=== PATIENT | male | born 1985 | race African-American/Black ===

== ENCOUNTER 2019-09-28 16:56 | Emergency (ER) | payer SELFPAY ==
[~2019-09-28] VITALS: Ht 177.8 cm; Wt 78.0 kg
[2019-09-28] MEDS ORDERED: ONDANSETRON HCL 4MG/2ML INJ IV STA (17:04)
[2019-09-28] MEDS ORDERED: NALOXONE HCL 1 MG/ML 2ML VIAL IV ONE ×2 (17:15→17:45)
[2019-09-28 18:01] LABS: *AMPHETAMINES SCREEN URINE PRESUMTIVE POSITIVE (NEGATIVE); *BARBITURATES SCREEN URINE NEGATIVE (NEGATIVE); *BENZODIAZEPINES SCREEN URINE NEGATIVE (NEGATIVE); CANNABINOID URINE SCREEN PRESUMTIVE POSITIVE (NEGATIVE); METHADONE URINE SCREEN NEGATIVE (NEGATIVE); OPIATES URINE SCREEN NEGATIVE (NEGATIVE); PHENCYCLIDINE URINE SCREEN NEGATIVE (NEGATIVE)
[2019-09-28 18:02] LABS: *COCAINE SCREEN URINE NEGATIVE (NEGATIVE)
[2019-09-28 18:42] LABS: BASOPHILS % 0.3 % (0.0-2.0); EOSINOPHILS % 2.8 % (0.0-5.0); HEMATOCRIT. 46.4 % (42.0-52.0); HEMOGLOBIN. 16.1 g/dL (14.0-18.0); MEAN CORPUSCULAR HEMOGLOBIN 34.6 pg (28.0-32.0); MEAN CORPUSCULAR VOLUME 99.8 fL (80.0-94.0); MEAN PLATELET VOLUME 6.5 fl (7.4-10.4); MONOCYTES % 8.9 % (2.0-8.0); PLATELET 456 x1000/uL (130-400); RED BLOOD CELL COUNT 4.65 mill/uL (4.7-6.1); RED CELL DISTRIBUTION WIDTH 14.8 % (11.6-14.6)
[2019-09-28 18:50] LABS: CHLORIDE 106 mEq/L (98-107)
[2019-09-28 18:53] LABS: ETHANOL BLOOD 164 mg/dL
[2019-09-28] MEDS ORDERED: ACETAMINOPHEN 325MG TABLET PO PRN ×2 (23:45)
[2019-09-28] MEDS ORDERED: GUAIFENESIN 200MG/10ML SUGAR FREE UDC PO PRN (23:45)
[2019-09-28] MEDS ORDERED: MAGNESIUM/ALUMINUM HYDROXIDE/SIMETHICONE 30ML UDC PO PRN (23:45)
[2019-09-28] MEDS ORDERED: ONDANSETRON HCL 4MG/2ML INJ IV PRN (23:45)
[2019-09-28] MEDS ORDERED: DIPHENHYDRAMINE 50MG/ML VIAL IV PRN (23:45)
[2019-09-28] MEDS ORDERED: DOCUSATE SODIUM 100MG CAPSULE PO PRN (23:45)
[2019-09-28] MEDS ORDERED: ACETAMINOPHEN 650MG SUPP PR PRN ×2 (23:45)
[2019-09-28] MEDS ORDERED: ACETAMINOPHEN 650MG/20.3ML UDC GT PRN ×2 (23:45)
[2019-09-28] MEDS ORDERED: NA PHOS,M-B/NA PHOS,DI-BA ENEMA 118ML PR PRN (23:45)
[2019-09-28] MEDS ORDERED: CLONIDINE 0.1MG TABLET PO PRN (23:45)
[2019-09-29] MEDS ORDERED: DEXT 5%/0.9% NACL 1,000 ML IV SCH (01:00)
[2019-09-29 07:31] LABS: BASOPHILS % 0.3 % (0.0-2.0); EOSINOPHILS % 2.9 % (0.0-5.0); HEMATOCRIT. 45.4 % (42.0-52.0); HEMOGLOBIN. 15.8 g/dL (14.0-18.0); MEAN CORPUSCULAR HEMOGLOBIN 34.5 pg (28.0-32.0); MEAN CORPUSCULAR VOLUME 99.1 fL (80.0-94.0); MEAN PLATELET VOLUME 6.4 fl (7.4-10.4); MONOCYTES % 11.7 % (2.0-8.0); NEUTROPHILS % 60.1 % (40.0-76.0); PLATELET 409 x1000/uL (130-400); RED BLOOD CELL COUNT 4.58 mill/uL (4.7-6.1); RED CELL DISTRIBUTION WIDTH 15.2 % (11.6-14.6)
[2019-09-29 07:42] LABS: CHLORIDE 109 mEq/L (98-107)
[2019-09-29 07:49] LABS: LDL CHOLESTEROL 74 mg/dL (5-100)
[2019-09-29 07:51] LABS: HDL CHOLESTEROL 59 mg/dL (40-59)
[2019-09-29] MEDS ORDERED: THIAMINE HCL 100MG TABLET PO SCH (09:00)
[2019-09-29] MEDS ORDERED: FOLIC ACID 1MG TABLET PO SCH (09:00)
[2019-09-29] MEDS ORDERED: AMLO10TA4 MT (11:25)
[2019-09-29] MEDS ORDERED: AMLODIPINE 10MG TABLET PO SCH (11:30)
[2019-09-29 12:33] VITALS: BP 135/81
[2019-09-29 13:21] VITALS: BP 134/75
[2019-09-29 13:53] LABS: CLARITY URINE CLEAR (CLEAR); COLOR URINE YELLOW (YELLOW); KETONES URINE NEGATIVE (NEGATIVE); LEUKOCYTE ESTERASE URINE NEGATIVE (NEGATIVE); NITRITE URINE NEGATIVE (NEGATIVE); OCCULT BLOOD URINE TRACE (NEGATIVE); PROTEIN URINE NEGATIVE (NEGATIVE); SPECIFIC GRAVITY URINE 1.011 (1.005-1.030); UROBILINOGEN URINE 0.2 E.U./dL (0.2-1.0)
== END 2019-09-29 13:25 | disposition home or self-care (01) ==
LOC: ER 16:56 → UNDOADMIN 20:53 → MICUSO 20:53
DX: G93.40 Encephalopathy, unspecified (principal); T50.7X1A Poisoning by analeptics and opioid receptor antagonists, accidental (unintentional), initial encounter; Y92.89 Other specified places as the place of occurrence of the external cause
CPT/HCPCS: 36415; 70450; 71045; 80053; 80061; 80305; 80307; 80320; 80329; 81003; 82140; 83880; 84484; 85025; 93005; 96374; 96375; 96376; 99285; J2310; J2405; G0480